=== PATIENT | female | born 1980 | race Hispanic/Latino ===

== ENCOUNTER 2017-10-20 08:59 | Emergency (ER) | payer OTHER, SELFPAY ==
[2017-10-20 09:35] LABS: #Basophils 0.1 thou/uL (0.0-0.2); #Eosinphils 0.3 thou/uL (0.0-0.7); #Monocytes 0.4 thou/uL (0.11-0.59); #Neutrophils 4.3 thou/uL (1.40-6.50); %Lymphocytes 28.5 % (21.0-51.0); %Monocytes 5.5 % (0.0-10.0); Hemoglobin 13.2 g/dL (12.0-16.0); Mean Corpuscular HGB CONC 35.7 g/dL (32.0-36.0); Mean Corpuscular Hemoglobin 31.3 pg (27.0-31.0); Mean Corpuscular Volume 87.9 fL (78.0-98.0); Mean Platelet Volume 5.5 fL (7.4-10.4); Platelet Count 331 thou/uL (130-400); Red Blood Cell (RBC) Count 4.21 mill/uL (4.20-5.40); White Blood Cell (WBC) Count 7.1 thou/uL (4.8-10.8)
[2017-10-20 09:59] LABS: ALT (SGPT) 13 U/L (8-55); AST (SGOT) 18 U/L (5-34); Alkaline Phosphatase 88 U/L (40-150); Anion Gap 14 mmol/L (10-20); BUN (Urea Nitrogen) 12 mg/dL (7.0-18.7); Bilirubin, Total 0.2 mg/dL (0.2-1.2); CK (CPK) 49 U/L (29-168); Calc. Creatinine Clearance 0 mL/min (70-130); Calcium 9.2 mg/dL (7.8-10.44); Carbon Dioxide 19 mmol/L (22-29); Chloride 106 mmol/L (98-107); Estimated GFR-MDRD 86; Globulin 3.6 g/dL (2.4-3.5); Glucose 104 mg/dL (70-105); Lipase 26 U/L (8-78); Potassium 3.4 mmol/L (3.5-5.1); Protein, Total 7.6 g/dL (6.0-8.3); Sodium 136 mmol/L (136-145)
[2017-10-20 10:00] LABS: BHCG - Serum Negative (NEGATIVE); Pregs Control Background? CLEAR/WHITE (CLR/WHITE); Pregs Control Bar Appear? YES (CONTROL BAR)
[2017-10-20 10:02] LABS: CKMB 0.6 ng/mL (0-6.6); Troponin I Less than 0.010 ng/mL (< 0.028)
--- NOTE | 2017-10-20 10:09 | RAD ---
UPRIGHT PORTABLE CHEST 1 VIEW: Date: 10/20/17 HISTORY: 36-year-old female with history of chest pain. COMPARISON: 05/03/12. FINDINGS: Monitor leads overlie the chest. Inspiration is somewhat less than optimal. No confluent pneumonia, o vert edema, or pleural effusion. IMPRESSION: No acute intrathoracic disease. Stable from prior study. POS: DIDIER
[2017-10-20] MEDS ORDERED: Labetalol HCl 100 MG/20 ML VIAL ONE (10:38)
[2017-10-20] MEDS ORDERED: Nitroglycerin 2% Ointment 1 INCH/1 GM Packet ONE (10:38)
== END 2017-10-20 11:37 | disposition home or self-care (01) ==
LOC: ERS 08:59
DX: I10 Essential (primary) hypertension (principal); F41.9 Anxiety disorder, unspecified; F32.9 Major depressive disorder, single episode, unspecified; F17.210 Nicotine dependence, cigarettes, uncomplicated; E05.90 Thyrotoxicosis, unspecified without thyrotoxic crisis or storm; Z71.6 Tobacco abuse counseling; Z79.899 Other long term (current) drug therapy; Z79.891 Long term (current) use of opiate analgesic
CPT/HCPCS: 71045; 80053; 82553; 83690; 84484; 84703; 85025; 85379; 93005; 96374; 99406

== ENCOUNTER 2017-11-24 10:38 | Observation (INO) | payer OTHER ==
[2017-11-24 11:06] LABS: #Eosinphils 0.7 thou/uL (0.0-0.7); #Lymphocytes 2.9 thou/uL (1.20-3.40); #Monocytes 0.8 thou/uL (0.11-0.59); #Neutrophils 7.5 thou/uL (1.40-6.50); %Basophils 0.4 % (0.0-1.0); %Eosinophils 5.7 % (0.0-10.0); %Lymphocytes 24.4 % (21.0-51.0); %Monocytes 6.3 % (0.0-10.0); %Neutrophils 63.3 % (42.0-75.0); Hemoglobin 13.8 g/dL (12.0-16.0); Mean Corpuscular HGB CONC 33.6 g/dL (32.0-36.0); Mean Corpuscular Hemoglobin 29.8 pg (27.0-31.0); Mean Corpuscular Volume 88.6 fL (78.0-98.0); Mean Platelet Volume 5.7 fL (7.4-10.4); Platelet Count 407 thou/uL (130-400); RBC Distribution Width 12.8 % (11.5-14.5); Red Blood Cell (RBC) Count 4.64 mill/uL (4.20-5.40); White Blood Cell (WBC) Count 11.8 thou/uL (4.8-10.8)
[2017-11-24] MEDS ORDERED: Nitroglycerin 2% Ointment 1 INCH/1 GM Packet ONE (11:08)
[2017-11-24 11:22] LABS: ALT (SGPT) 25 U/L (8-55); AST (SGOT) 18 U/L (5-34); Albumin 3.9 g/dL (3.5-5.0); Alkaline Phosphatase 115 U/L (40-150); Anion Gap 13 mmol/L (10-20); BUN (Urea Nitrogen) 11 mg/dL (7.0-18.7); Bilirubin, Total 0.3 mg/dL (0.2-1.2); Calc. Creatinine Clearance 0 mL/min (70-130); Calcium 9.3 mg/dL (7.8-10.44); Carbon Dioxide 26 mmol/L (22-29); Chloride 101 mmol/L (98-107); Estimated GFR-MDRD 80; Globulin 3.6 g/dL (2.4-3.5); Glucose 120 mg/dL (70-105); Lipase 20 U/L (8-78); Protein, Total 7.5 g/dL (6.0-8.3); Sodium 137 mmol/L (136-145)
[2017-11-24 11:27] LABS: Potassium 2.8 mmol/L (3.5-5.1)
[2017-11-24] MEDS ORDERED: Potassium Chloride 20 MEQ TAB ONE (11:55)
[2017-11-24] MEDS ORDERED: Mag-Al 1200 mg/1200 mg/30 ML UDCUP ONE (11:55)
[2017-11-24] MEDS ORDERED: Lidocaine Viscous Sol 2% 15 ml UD Cup ONE (11:55)
[2017-11-24 12:18] LABS: Bilirubin Negative (Negative); Blood, Urine Small (Negative); Clarity CLEAR (Clear); Glucose, Urine (Dipstick) Negative (Negative); Leukocyte Negative (Negative); Nitrite Negative (Negative); Protein, Urine (Dipstick) Negative (Neg-Trace); Specific Gravity, Urine 1.028 (1.002-1.036)
[2017-11-24 12:21] LABS: Bacteria/HPF 1+ HPF (None Seen); Hyaline Casts/LPF 0-3 HYALINE CAST LPF (0-3 Hyaline); Pathc Cast-AUWi Flag 0.43 (0-2.49); RBC/HPF 21-50 HPF (0-3)
[2017-11-24 12:23] LABS: Renal Epithelial None Seen HPF (0-3); Transitional Epithelial NONE SEEN HPF (0-3)
[2017-11-24] MEDS ORDERED: Dicyclomine 20 MG TAB ONE (13:07)
[2017-11-24] MEDS ORDERED: Pantoprazole 40 MG VIAL ONE (13:07)
[2017-11-24] MEDS ORDERED: Nitroglycerin 0.4 MG TAB (25 Tab Bottle) ONE (13:16)
[2017-11-24 13:21] LABS: CKMB 0.6 ng/mL (0-6.6); Troponin I Less than 0.010 ng/mL (< 0.028)
[2017-11-24] MEDS ORDERED: Enalaprilat Dihydrate 1.25 MG/ML VIAL ONE (14:17)
[2017-11-24 14:34] LABS: BHCG - Serum Negative (NEGATIVE); Pregs Control Background? CLEAR/WHITE (CLR/WHITE); Pregs Control Bar Appear? YES (CONTROL BAR)
[2017-11-24 14:52] LABS: Amphetamine Not Detected (NotDetected); Barbiturates Screen Not Detected (NotDetected); Benzodiazepine Screen Detected (NotDetected); Cocaine Metabolite Screen Not Detected (NotDetected); Medtox Control Line Valid? VALID (VALID); Medtox Reader # READER 1; Methadone Not Detected (NotDetected); Methamphetamine Not Detected (NotDetected); Opiate Screen Not Detected (NotDetected); Oxycodone Screen Not Detected (NotDetected); Phencyclidine (PCP) Not Detected (NotDetected); THC/Cannabinoid Screen Not Detected (NotDetected); Tricyclic Screen Not Detected (NotDetected)
[2017-11-24 15:12] LABS: Troponin I Less than 0.010 ng/mL (< 0.028)
[2017-11-24] MEDS ORDERED: Ondansetron HCl/PF 4 MG/2 ML Vial IVP PRN (15:28)
[2017-11-24] MEDS ORDERED: Acetaminophen 325 MG TAB PO PRN (15:28)
[2017-11-24] MEDS ORDERED: Ondansetron ODT 4 MG TAB SL PRN (15:28)
[2017-11-24] MEDS ORDERED: Labetalol HCl 100 MG/20 ML VIAL SLOW IVP PRN (15:32)
[2017-11-24] MEDS ORDERED: Enalaprilat Dihydrate 1.25 MG/ML VIAL SLOW IVP PRN (15:33)
[2017-11-24 15:42] VITALS: BMI 52.4
[2017-11-24] MEDS ORDERED: Meperidine HCl/PF 25 MG/ML VIAL SLOW IVP PRN (15:53)
[2017-11-24] MEDS ORDERED: Bisacodyl 5 MG TAB PO PRN (15:54)
[2017-11-24] MEDS ORDERED: Acetaminophen 650 MG Suppository PR PRN (15:54)
[2017-11-24] MEDS ORDERED: Amlodipine 5 MG TAB PO SCH (16:00)
[2017-11-24] MEDS ORDERED: Lidocaine 2% Viscous Solution 10 ML, Aluminum & Magnesium Hydroxide 30 ML SSW PRN (16:06)
[2017-11-24] MEDS: Potassium Chloride 20 MEQ TAB PO SCH ×2 (16:56→19:57)
[2017-11-24] MEDS: Nicotine 21 MG PATCH TD SCH (16:56)
[2017-11-24] MEDS: traMADol HCl 50 MG TAB PO PRN ×2 (16:56→23:03)
[2017-11-24 17:23] LABS: Troponin I Less than 0.010 ng/mL (< 0.028)
[2017-11-24] MEDS: Nitroglycerin 0.4 MG TAB (25 Tab Bottle) PO PRN ×3 (18:31→18:42)
[2017-11-24] MEDS ORDERED: Ibuprofen 800 MG TAB PO PRN (18:38)
[2017-11-24] MEDS ORDERED: Diazepam 5 MG TAB PO PRN (18:38)
[2017-11-24] MEDS ORDERED: busPIRone HCl 5 MG TAB PO PRN (18:38)
[2017-11-24] MEDS ORDERED: busPIRone HCl 10 MG TAB PO PRN (18:38)
--- NOTE | 2017-11-24 18:53 | HP ---
PRIMARY CARE PROVIDER: Dr. Karlene Amaro at [facility] [place]. CHIEF COMPLAINT: Nausea and vomiting. HISTORY OF PRESENT ILLNESS: Mr. Souza is a pleasant 36-year-old lady who was seen at [facility] on 11/24/2017. She reports that 3 days ago she started vomiting. The vomiting lasted 1 day. She has continued to b e nauseous since then. Over the last 2 days, she has had pain over the epigastric and lower retroste rnal region. She was woken up by ongoing pain today morning as well around 2:00 a.m. She describes the pain as sharp, constant, no known aggravating or relieving factors, radiating to the back, 8/10 a t its worst. She continues to be nauseous, although that has improved since he came to the emergency room. Her last bowel movement was earlier today. She denies any fevers or chills. She denies any diarrhea. REVIEW OF SYSTEMS: All other systems reviewed and found to be negative. PAST MEDICAL HISTORY: Hypothyroidism, neuropathic pain, hypertension, gastroesophageal reflux diseas e, anxiety and depression. PAST SURGICAL HISTORY: Appendectomy and cholecystectomy. SOCIAL HISTORY: She smokes half to 1 pack of cigarettes a day. She denies any recreational drug use or alcohol use. FAMILY HISTORY: Her mother had myocardial infarction in her early 40s. Mother also had cirrhosis. She reports family history of breast cancer and lung cancer. ALLERGIES: BACTRIM, MORPHINE and PENICILLIN. CURRENT MEDICATIONS: Buspirone 10 mg 2 times a day, venlafaxine 37.5 mg daily, levothyroxine 50 mcg daily, gabapentin 300 mg at bedtime, omeprazole 40 mg daily, and hydrochlorothiazide 25 mg daily. PHYSICAL EXAMINATION: GENERAL: Ms. Souza is awake and alert, not in acute distress. VITAL SIGNS: Blood pressure is 153/77, pulse 58, respiratory rate 24, oxygen saturation 100% on room air. She is afebrile. She is morbidly obese with a BMI of 52.5. EYES: No scleral icterus. No conjunctival pallor. ENT: Dry mucosal membranes. No oropharyngeal erythema or exudates. NECK: Supple, nontender, trachea is midline. RESPIRATORY: Accessory muscles of breathing are not active. Chest wall movements are symmetric bila terally. LUNGS: Clear to auscultation without wheeze, rhonchi or crepitations. CARDIOVASCULAR: S1 and S2 are heard, regular. Peripheral pulses palpable. No carotid bruit, no per icardial rub. ABDOMEN: Soft, distended, nontender, bowel sounds are heard, no hepatomegaly, no splenomegaly. NEUROLOGIC: Cranial nerves II-XII intact. Deep tendon reflexes are 2+. MUSCULOSKELETAL: Power is 5/5 in all 4 extremities. SKIN: No rashes or subcutaneous nodules. LYMPHATIC: No cervical lymphadenopathy. PSYCHIATRIC: Normal mood, normal affect, the patient is oriented to person, place and time. LABORATORY DATA: Ms. Souza' labs and investigations were reviewed. She had a 12-lead electrocard iogram, which shows normal sinus rhythm, no ST changes to suggest an acute coronary syndrome. He has not had a chest x-ray yet. She has leukocytosis with 11,800 white cells, of which 63% are neutrophi ls, normal hemoglobin and elevated platelet count of 407,000. Sodium is normal at 137, potassium is decreased at 2.8, creatinine is normal, LFTs are unremarkable. Lipase is normal and serum test is negative. Troponin I is negative x3. Urinalysis is positive for small amount of blood, 4-6 wbc's and 1+ bacteria. Urine toxicology screen is positive for benzodiazepines. ASSESSMENT AND PLAN: Mr. Souza is a pleasant 36-year-old lady who was seen at [facility] on 11/24/2017. Her problem list includes: 1. Chest pain: Ms. Souza is presenting with pain over the lower retrosternal and epigastric neville on. She will be admitted to the hospital for further management. Given her cardiac risk factors inc luding smoking and family history, I will order a stress test. I will also try a GI cocktail and for a possible GI cause of her symptoms. 2. Nausea and vomiting. This has improved. We will start her on p.r.n. IV Zofran. 3. Hypothyroidism: We will continue Synthroid. 4. Neuropathic pain: We will continue gabapentin. 5. Gastroesophageal reflux disease. We will continue PPI. Many thanks for allowing me to participate in your patient's care. Please feel free to contact me wi th any questions or concerns. LEVEL OF RISK: Moderate. LEVEL OF COMPLEXITY: Moderate.
[2017-11-24] MEDS: NS 0.9% w/ 40 MEQ KCL 1,000 ML IV SCH (19:54)
[2017-11-24] MEDS: Gabapentin 100 MG CAP PO SCH (19:55)
[2017-11-24] MEDS: Acetaminophen 325 MG TAB PO PRN (19:56)
--- NOTE | 2017-11-24 20:31 | RAD ---
RADIOGRAPH CHEST 2 VIEWS: 11/24/17 HISTORY: 36-year-old female with chest pain. FINDINGS: There is no air space density, pulmonary edema, pleural effusion, pneumothorax, or cardiomegaly. IMPRESSION: No acute cardiopulmonary findings. fernando [] POS: DIDIER
[2017-11-24] MEDS ORDERED: Gabapentin 100 MG CAP PO SCH ×2 (21:00)
[2017-11-24] MEDS ORDERED: Nitroglycerin 2% Ointment 1 INCH/1 GM Packet TOP SCH (22:00)
[2017-11-25] MEDS: Potassium Chloride 20 MEQ TAB PO SCH (02:18)
[2017-11-25 04:36] LABS: #Eosinphils 0.4 thou/uL (0.0-0.7); #Lymphocytes 2.9 thou/uL (1.20-3.40); #Monocytes 0.7 thou/uL (0.11-0.59); #Neutrophils 7.2 thou/uL (1.40-6.50); %Basophils 0.2 % (0.0-1.0); %Eosinophils 3.4 % (0.0-10.0); %Lymphocytes 25.6 % (21.0-51.0); %Monocytes 6.6 % (0.0-10.0); %Neutrophils 64.2 % (42.0-75.0); Hemoglobin 12.8 g/dL (12.0-16.0); Mean Corpuscular HGB CONC 33.3 g/dL (32.0-36.0); Mean Corpuscular Hemoglobin 29.8 pg (27.0-31.0); Mean Corpuscular Volume 89.5 fL (78.0-98.0); Mean Platelet Volume 5.9 fL (7.4-10.4); Platelet Count 350 thou/uL (130-400); RBC Distribution Width 12.9 % (11.5-14.5); White Blood Cell (WBC) Count 11.2 thou/uL (4.8-10.8)
[2017-11-25 05:18] LABS: Anion Gap 11 mmol/L (10-20); BUN (Urea Nitrogen) 8 mg/dL (7.0-18.7); Calc. Creatinine Clearance 232 mL/min (70-130); Calcium 8.7 mg/dL (7.8-10.44); Carbon Dioxide 26 mmol/L (22-29); Chloride 102 mmol/L (98-107); Estimated GFR-MDRD Greater than 90; Glucose 120 mg/dL (70-105); Potassium 4.3 mmol/L (3.5-5.1); Sodium 135 mmol/L (136-145)
[2017-11-25] MEDS: Levothyroxine Sodium 50 MCG TAB PO SCH ×2 (05:51→06:39)
[2017-11-25] MEDS: Acetaminophen 325 MG TAB PO PRN (06:37)
[2017-11-25] MEDS: traMADol HCl 50 MG TAB PO PRN ×2 (06:38→14:02)
[2017-11-25] MEDS: Enoxaparin Sodium 40 MG/0.4 ML SYRINGE SC SCH (08:45)
[2017-11-25] MEDS: Venlafaxine XR 37.5 MG CAP PO SCH (08:45)
[2017-11-25] MEDS: Aspirin 325 MG TAB PO SCH (08:45)
[2017-11-25] MEDS: Hydrochlorothiazide 25 MG TAB PO SCH (08:45)
[2017-11-25] MEDS: Amlodipine 5 MG TAB PO SCH (08:45)
[2017-11-25] MEDS: NS 0.9% w/ 40 MEQ KCL 1,000 ML IV SCH (08:45)
[2017-11-25] MEDS ORDERED: ISOVUE-370 76%-LOCM 1 ML ONE (10:45)
[2017-11-25] MEDS: Ondansetron HCl/PF 4 MG/2 ML Vial IVP PRN ×2 (12:10→19:55)
--- NOTE | 2017-11-25 15:29 | PDOC.PN ---
- Subjective Encounter Start Date: 11/25/17 Encounter Start Time: 11:20 Pt seen for followup re: chest pain. Reports pain is better. Feels hungry. - Objective Vital Signs & Weight: Vital Signs (12 hours) Temp Pulse Resp BP BP Pulse Ox 11/25/17 07:12 98.1 F 73 18 131/63 98 11/25/17 04:13 63 18 140/76 Weight Weight 296 lb 4.8 oz I&O: 11/24/17 11/25/17 11/26/17 06:59 06:59 06:59 Intake Total 360 240 Balance 360 240 Result Diagrams: 11/25/17 04:13 11/25/17 04:13 Phys Exam - Physical Examination Morbid obesity HEENT: moist MMs, sclera anicteric, oral pharynx no lesions, 2+ tonsils Neck: no nodes, no JVD, supple, full ROM Respiratory: no wheezing, no rales, no rhonchi, clear to auscultation bilateral Cardiovascular: RRR, no rub S1, s2 Gastrointestinal: soft, non-tender, positive bowel sounds distention Neurological: moves all 4 limbs Psychiatric: normal affect, A&O x 3 Dx/Plan (1) Chest pain Code(s): R07.9 - CHEST PAIN, UNSPECIFIED Status: Acute Comment: waiting for stress test. Check d-dimer. (2) Hyponatremia Code(s): E87.1 - HYPO-OSMOLALITY AND HYPONATREMIA Status: Acute Comment: mild, likely asymptomatic (3) Hypothyroidism Code(s): E03.9 - HYPOTHYROIDISM, UNSPECIFIED Status: Chronic Comment: continue synthroid (4) GERD (gastroesophageal reflux disease) Code(s): K21.9 - GASTRO-ESOPHAGEAL REFLUX DISEASE WITHOUT ESOPHAGITIS Status: Chronic Comment: continue PPI (5) HTN (hypertension) Code(s): I10 - ESSENTIAL (PRIMARY) HYPERTENSION Status: Chronic Comment: controlled (6) Nausea and vomiting Code(s): R11.2 - NAUSEA WITH VOMITING, UNSPECIFIED Status: Resolved (7) Diarrhea Code(s): R19.7 - DIARRHEA, UNSPECIFIED Status: Resolved - Plan * . Review of Systems - Review of Systems Respiratory: negative: Cough, Shortness of Breath, SOB with Excertion, Pleuritic Pain, Wheezing Cardiovascular: chest pain. negative: palpitations, orthopnea, paroxysmal nocturnal dyspnea, edema, light headedness Gastrointestinal: negative: Nausea, Vomiting, Abdominal Pain, Diarrhea, Constipation, Melena, Hematochezia Genitourinary: negative: Dysuria, Frequency, Incontinence, Hematuria, Retention Musculoskeletal: negative: Neck Pain, Shoulder Pain, Arm Pain, Back Pain, Hand Pain, Leg Pain, Foot Pain - Medications/Allergies Allergies/Adverse Reactions: Allergies Allergy/AdvReac Type Severity Reaction Status Date / Time morphine Allergy Verified 11/24/17 16:11 Penicillins Allergy Verified 11/24/17 16:11 sulfamethoxazole Allergy Verified 11/24/17 16:11 [From Bactrim] trimethoprim [From Bactrim] Allergy Verified 11/24/17 16:11 Medications: Current Medications Acetaminophen (Tylenol) 650 mg PO Q4H PRN PRN Reason: Headache/Fever or Pain Last Admin: 11/25/17 06:37 Dose: 650 mg Acetaminophen (Tylenol) 650 mg [place] Q4H PRN PRN Reason: Headache/Fever or Pain Amlodipine Besylate (Norvasc) 5 mg PO DAILY [facility] Last Admin: 11/25/17 08:45 Dose: 5 mg Aspirin (Aspirin) 325 mg PO DAILY [facility] Last Admin: 11/25/17 08:45 Dose: 325 mg Bisacodyl (Dulcolax) 10 mg PO DAILYPRN PRN PRN Reason: Constipation Buspirone HCl (Buspar) 5 mg PO BID PRN PRN Reason: Anxiety/Agitation Lidocaine HCl 10 ml/ Al (Hydroxide/Mg Hydroxide 30 ml) 0 ml SSW QID PRN PRN Reason: abdo pain Last Admin: 11/24/17 18:39 Dose: 40 dose Diazepam (Valium) 5 mg PO HSPRN PRN PRN Reason: Anxiety Last Admin: 11/24/17 19:55 Dose: 5 mg Enalaprilat (Vasotec) 1.25 mg SLOW IVP Q6HR PRN PRN Reason: SBP Greater Than 180 Enoxaparin Sodium (Lovenox) 40 mg SC 0900 [facility] Last Admin: 11/25/17 08:45 Dose: 40 mg Gabapentin (Neurontin) 100 mg PO HS [facility] Last Admin: 11/24/17 19:55 Dose: 100 mg Hydrochlorothiazide (Hydrochlorothiazide) 25 mg PO QAM [facility] Last Admin: 09/29/18 08:45 Dose: 25 mg Potassium Chloride/Sodium Chloride (Ns 0.9% W/ 40 Meq Kcl) 1,000 mls @ 70 mls/ hr IV .[id number] [facility] Last Admin: 11/25/17 08:45 Dose: 1,000 mls Ibuprofen (Motrin) 800 mg PO Q8H PRN PRN Reason: Mild-Moderate Pain (1-5) Last Admin: 11/24/17 19:59 Dose: 800 mg Labetalol HCl (Normodyne) 10 mg SLOW IVP Q8H PRN PRN Reason: SBP Greater Than 180 Levothyroxine Sodium (Synthroid) 50 mcg PO 0600 [facility] Last Admin: 11/25/17 06:39 Dose: 50 mcg Meperidine HCl (Demerol) 12.5 mg SLOW IVP Q8H PRN PRN Reason: Pain Nicotine (Nicoderm Patch) 21 mg TD Q24HR [facility] Last Admin: 11/24/17 16:56 Dose: Not Given Nitroglycerin (Nitrostat) 0.4 mg PO Q5MIN PRN PRN Reason: Chest Pain Last Admin: 11/24/17 18:42 Dose: 0.4 mg Ondansetron HCl (Zofran) 4 mg IVP Q6H PRN PRN Reason: Nausea/Vomiting Last Admin: 11/25/17 12:10 Dose: 4 mg Pantoprazole Sodium (Protonix) 40 mg PO DAILY [facility] Last Admin: 11/25/17 08:45 Dose: 40 mg Tramadol HCl (Ultram) 50 mg PO Q6H PRN PRN Reason: Pain Last Admin: 11/25/17 06:38 Dose: 50 mg Venlafaxine HCl (Effexor Xr) 37.5 mg PO DAILY [facility] Last Admin: 11/25/17 08:45 Dose: 37.5 mg
--- NOTE | 2017-11-25 16:09 | CT ---
CTA THORAX WITH CONTRAST: 11/25/17 (Computed Tomographic Angiography, chest(noncoronary) with contrast material, and image postprocessin g) (PE protocol) HISTORY: 36-year-old female with chest pain. TECHNIQUE: IV injection of iodinated contrast: 100 mL Isovue Scan acquisition timing attempted to coincide with iodinated contrast bolus reaching maximal density in pulmonary arteries. 3D MIP reconstructions. FINDINGS: There is no pulmonary thromboembolism. Nonspecific mild ground glass densities scattered in bilateral lower lobes. No consolidation, pleural effusion, or pneumothorax. No thoracic aortic aneurysm or di ssection. Multiple, tortuous collateral veins in the deep and superficial soft tissues of the right c hest and right shoulder, as demonstrated on previous study of 05/20/15 indicating chronic thrombosis, chronic occlusion or chronic stenosis of major right sided veins. The appearance is unchanged compare d to 05/19/15. IMPRESSION: 1. No pulmonary thromboembolism. 2. Multiple right sided collateral veins. fernando[] POS: DIDIER
[2017-11-25] MEDS: Nicotine 21 MG PATCH TD SCH (17:00)
[2017-11-25] MEDS: Nitroglycerin 0.4 MG TAB (25 Tab Bottle) PO PRN ×3 (19:38→19:50)
[2017-11-25] MEDS: Gabapentin 100 MG CAP PO SCH (19:38)
[2017-11-26] MEDS: NS 0.9% w/ 40 MEQ KCL 1,000 ML IV SCH (03:56)
[2017-11-26 04:46] LABS: #Eosinphils 0.5 thou/uL (0.0-0.7); #Lymphocytes 2.4 thou/uL (1.20-3.40); #Monocytes 0.6 thou/uL (0.11-0.59); #Neutrophils 8.1 thou/uL (1.40-6.50); %Basophils 0.2 % (0.0-1.0); %Eosinophils 4.4 % (0.0-10.0); %Lymphocytes 20.3 % (21.0-51.0); %Neutrophils 70.1 % (42.0-75.0); Anion Gap 11 mmol/L (10-20); BUN (Urea Nitrogen) 7 mg/dL (7.0-18.7); Calc. Creatinine Clearance 260 mL/min (70-130); Calcium 8.4 mg/dL (7.8-10.44); Carbon Dioxide 23 mmol/L (22-29); Chloride 103 mmol/L (98-107); Estimated GFR-MDRD Greater than 90; Glucose 109 mg/dL (70-105); Hemoglobin 12.8 g/dL (12.0-16.0); Mean Corpuscular HGB CONC 32.5 g/dL (32.0-36.0); Mean Corpuscular Hemoglobin 29.1 pg (27.0-31.0); Mean Corpuscular Volume 89.4 fL (78.0-98.0); Mean Platelet Volume 6.5 fL (7.4-10.4); Platelet Count 283 thou/uL (130-400); Potassium 4.1 mmol/L (3.5-5.1); RBC Distribution Width 13.1 % (11.5-14.5); Red Blood Cell (RBC) Count 4.39 mill/uL (4.20-5.40); Sodium 133 mmol/L (136-145); White Blood Cell (WBC) Count 11.6 thou/uL (4.8-10.8)
[2017-11-26] MEDS: Levothyroxine Sodium 50 MCG TAB PO SCH (05:45)
[2017-11-26 07:50] VITALS: TEMP 98
[2017-11-26] MEDS: Aspirin 325 MG TAB PO SCH (10:01)
[2017-11-26] MEDS: Enoxaparin Sodium 40 MG/0.4 ML SYRINGE SC SCH (10:02)
[2017-11-26] MEDS: Hydrochlorothiazide 25 MG TAB PO SCH (10:02)
[2017-11-26] MEDS: Amlodipine 5 MG TAB PO SCH (10:02)
[2017-11-26] MEDS: Venlafaxine XR 37.5 MG CAP PO SCH (10:02)
[2017-11-26 11:28] VITALS: BP 137/53
--- NOTE | 2017-11-26 13:18 | NM ---
CARDIAC SPECT: CLINICAL HISTORY: Chest pain. Hypertension. Smoker. TECHNIQUE: A myocardial perfusion scan was performed using the single isotope two day protocol with 29 mCi techn etium-99m sestamibi injected intravenously for both stress and rest images. Pharmacologic stress with Adenosine was monitored and interpreted by Dr. Orr. FINDINGS: There is a small fixed defect in the distal anteroseptal wall. This demonstrates normal contractility and wall thickening, and is most likely due to breast attenuation artifact rather than a scar. No re versible defects are seen. GATED SPECT LVEF: 57%. WALL MOTION EXAM: Normal. IMPRESSION: No evidence of reversible ischemia. POS: LETICIA
--- NOTE | 2017-11-26 14:30 | DIS ---
DATE OF ADMISSION: 11/24/2017 DATE OF DISCHARGE: 11/26/2017 PRIMARY CARE PROVIDER: Karlene Amaro M.D. DISCHARGE DIAGNOSES: 1. Chest pain. 2. Likely musculoskeletal versus gastrointestinal etiology for chest and epigastric pain. CONDITION OF PATIENT ON THE DAY OF DISCHARGE: Stable. I assessed Ms. Souza on the day of dischar . She reports that her chest pain has improved. Vital signs are stable. S1 and S2 are heard, reg ular. Lungs are clear to auscultation bilaterally. DISCHARGE MEDICATIONS: No change was made to her preadmission home medications as dictated on my his tory and physical note dated 11/24/2017. HOSPITAL COURSE: Ms. Souza is a pleasant 36-year-old lady, who was admitted to [facility] on 11/24/2017 for epigastric and lower retrosternal chest discomfort. Please refer t o my history and physical note dated 11/24/2017 for further details. She received GI cocktail with m inimal relief. She had CT angiogram of the chest for an elevated D-dimer, which showed no pulmonary thromboembolism, but showed multiple right-sided collateral veins. The appearance is unchanged fredrick red to a CT scan done on 05/19/2015. She is advised to follow up with her primary care provider for further management of this issue. She also had a nuclear stress test, which did not show any evidence of reversible ischemia. Her left ventricular ejection fraction was 57%. She improved clinically. She is being discharged home in a stable condition. On the day of discharge she has sodium 133, potassium 4.1, creatinine 0.64, white count 11,600, hemog lobin 12.8, and platelet count 283,000. Many thanks for allowing me to participate in your patient's care. Please feel free to contact me wi th any questions or concerns. DISCHARGE DESTINATION: Home.
--- NOTE | 2017-11-27 07:46 | ADD-HP ---
ADDENDUM Please note that Ms. Souza had hypertensive urgency when she was in the emergency room, with blood pressures as high as 217/124. She has shown me a record of her blood pressures at home, which are m uch lower than that. We will continue to monitor her vital signs and start her on p.r.n. antihyperte nsives. We will also start her on amlodipine at this time.
== END 2017-11-26 14:59 | disposition home or self-care (01) ==
LOC: ERS 10:38 → 2SW 15:24
PROVIDERS: ADMIT Internal Medicine; ATTEND Internal Medicine
DX: R07.89 Other chest pain (principal); R10.13 Epigastric pain; R11.2 Nausea with vomiting, unspecified; E03.9 Hypothyroidism, unspecified; I16.0 Hypertensive urgency; I10 Essential (primary) hypertension; K21.9 Gastro-esophageal reflux disease without esophagitis; F41.8 Other specified anxiety disorders; G62.9 Polyneuropathy, unspecified; F17.210 Nicotine dependence, cigarettes, uncomplicated; E87.1 Hypo-osmolality and hyponatremia; Z79.899 Other long term (current) drug therapy; Z88.0 Allergy status to penicillin; Z88.2 Allergy status to sulfonamides; Z88.5 Allergy status to narcotic agent
CPT/HCPCS: 36415; 71046; 71275; 78452; 80048; 80053; 80306; 81003; 81015; 82553; 83690; 83735; 84484; 84703; 85025; 85379; 90471; 90732; 93005; 93017; 94760; 96361; 96372; 96374; 96375; 96376; A9500; C9113; G0009; G0378; J0153; J1650; J2405; Q0162

== ENCOUNTER 2019-05-08 01:07 | Emergency (ER) | payer OTHER ==
[2019-05-08 01:48] LABS: #Basophils 0.1 thou/uL (0.0-0.2); #Eosinphils 0.5 thou/uL (0.0-0.7); #Lymphocytes 3.2 thou/uL (1.20-3.40); #Monocytes 0.7 thou/uL (0.11-0.59); %Basophils 0.8 % (0.0-1.0); %Eosinophils 4.7 % (0.0-10.0); %Monocytes 5.9 % (0.0-10.0); %Neutrophils 60.6 % (42.0-75.0); Hemoglobin 14.4 g/dL (12.0-16.0); Mean Corpuscular HGB CONC 34.4 g/dL (32.0-36.0); Mean Corpuscular Volume 87.1 fL (78.0-98.0); Platelet Count 382 thou/uL (130-400); RBC Distribution Width 12.3 % (11.5-14.5); White Blood Cell (WBC) Count 11.5 thou/uL (4.8-10.8)
[2019-05-08 02:03] LABS: Pregnancy Test - Urine (BHCG) Negative (Negative); Pregu Control Background? CLEAR/WHITE (CLR/WHITE); Pregu Control Bar Appear? YES (CONTROL BAR); Specific Gravity 1.036 (1.002-1.036)
[2019-05-08 02:04] LABS: Bacteria/HPF None Seen HPF (None Seen); Bilirubin Negative (Negative); Blood, Urine 2+ (Negative); Clarity Clear (Clear); Glucose, Urine (Dipstick) 30 mg/dL (Negative); Leukocyte Negative Leu/uL (Negative); Nitrite Negative (Negative); Protein, Urine (Dipstick) 30 mg/dL (Neg-Trace); Squamous Epithelial 0-3 HPF (0-3); Urobilinogen Normal mg/dL (Less than 2)
[2019-05-08 02:07] LABS: Anion Gap 14 mmol/L (10-20); BUN (Urea Nitrogen) 9 mg/dL (7.0-18.7); Calc. Creatinine Clearance 0 mL/min (70-130); Calcium 9.6 mg/dL (7.8-10.44); Carbon Dioxide 26 mmol/L (22-29); Chloride 100 mmol/L (98-107); Estimated GFR-MDRD 76; Glucose 139 mg/dL (70-105); Potassium 3.4 mmol/L (3.5-5.1); Sodium 137 mmol/L (136-145)
== END 2019-05-08 03:38 | disposition left against medical advice (07) ==
LOC: ERS 01:07
DX: Z53.21 Procedure and treatment not carried out due to patient leaving prior to being seen by health care provider (principal)
CPT/HCPCS: 36415; 80048; 81003; 81015; 81025; 83690; 85025; 93005

== ENCOUNTER 2019-08-16 10:35 | Emergency (ER) | payer OTHER, SELFPAY ==
[2019-08-18 11:44] LABS: SARS-CoV-2 MS2 Positive; SARS-CoV-2 N Gene Negative; SARS-CoV-2 S Gene Negative; SARS-CoV-2 orf1ab Negative
== END 2019-08-16 11:30 | disposition home or self-care (01) ==
LOC: ERS 10:35
DX: Z20.828 Contact with and (suspected) exposure to other viral communicable diseases (principal); E07.9 Disorder of thyroid, unspecified; F41.9 Anxiety disorder, unspecified; F32.9 Major depressive disorder, single episode, unspecified; F17.210 Nicotine dependence, cigarettes, uncomplicated
CPT/HCPCS: 87635; 99283; U0003

== ENCOUNTER 2020-04-21 23:39 | Emergency (ER) | payer OTHER ==
[2020-04-22] MEDS ORDERED: Ibuprofen 800 MG TAB ONE (00:04)
[2020-04-22] MEDS ORDERED: Hydrochlorothiazide 25 MG TAB PO SCH (00:30)
[2020-04-22 05:22] LABS: SARS-CoV-2 PCR by NAA Not Detected (NotDetected)
--- NOTE | 2020-04-22 07:43 | RAD ---
EXAM: CHEST ONE VIEW HISTORY: Chest pain. Body aches and chills. Sore throat and shortness of breath as well as chest pressure. COMPARISON: 10/20/2017 FINDINGS: The cardiac silhouette and pulmonary vasculature are within normal limits. Mild linear opacity left l jina base which may be related to superimposition of vascular structures and overlying ribs. The osseous structures are intact. IMPRESSION: No acute cardiopulmonary process.
== END 2020-04-22 01:25 | disposition home or self-care (01) ==
LOC: ERS 23:39
DX: J06.9 Acute upper respiratory infection, unspecified (principal); Z20.822 Contact with and (suspected) exposure to COVID-19; I10 Essential (primary) hypertension; E05.90 Thyrotoxicosis, unspecified without thyrotoxic crisis or storm; F17.210 Nicotine dependence, cigarettes, uncomplicated; F17.290 Nicotine dependence, other tobacco product, uncomplicated; Z79.899 Other long term (current) drug therapy
CPT/HCPCS: 71045; 87635; 93005; U0003; U0005

== ENCOUNTER 2020-12-30 02:31 | Emergency (ER) | payer OTHER ==
[2020-12-30] MEDS ORDERED: Ketorolac Tromethamine 30 MG/ML VIAL ONE (03:18)
== END 2020-12-30 03:45 | disposition home or self-care (01) ==
LOC: ERS 02:31
DX: S80.02XA Contusion of left knee, initial encounter (principal); E05.90 Thyrotoxicosis, unspecified without thyrotoxic crisis or storm; F17.210 Nicotine dependence, cigarettes, uncomplicated; Z79.899 Other long term (current) drug therapy; W01.0XXA Fall on same level from slipping, tripping and stumbling without subsequent striking against object, initial encounter
CPT/HCPCS: 96372; J1885